=== PATIENT | female | born 1945 | race Caucasian/White ===

== ENCOUNTER 2024-02-02 15:32 | Emergency (ER) | payer MEDICARE ==
[2024-02-02] MEDS ORDERED: HYDROcodone/Acetaminophen 5/325 mg Tablet ONE (16:53)
== END 2024-02-02 17:55 | disposition home or self-care (01) ==
LOC: CSHERS 15:32
DX: S32.592A Other specified fracture of left pubis, initial encounter for closed fracture (principal); R03.0 Elevated blood-pressure reading, without diagnosis of hypertension; I10 Essential (primary) hypertension; Z75.3 Unavailability and inaccessibility of health-care facilities; Z87.891 Personal history of nicotine dependence; W18.30XA Fall on same level, unspecified, initial encounter
CPT/HCPCS: 36416; 72125; 72131; 72192; 93005